=== PATIENT | male | born 1960 | race Caucasian/White ===

== ENCOUNTER 2016-11-26 10:10 | Observation (INO) | payer OTHER ==
[~2016-11-26] VITALS: Ht 177.8 cm; Wt 105.6 kg
[~2016-11-26 10:10] MED LIST: MULT-506 PO
[2016-11-26] MEDS ORDERED: ONDANSETRON INJ 2 MG/ML 2 ML VIAL IV STA (10:22)
[2016-11-26] MEDS ORDERED: KETOROLAC TROMETHAMINE 30 MG/ML VIAL IV STA (10:22)
[2016-11-26] MEDS ORDERED: SODIUM CHLORIDE 0.9% 1000ML 1,000 ML IV STA (10:22)
[2016-11-26] MEDS ORDERED: OPTIRAY 320 IV PRN (10:30)
[2016-11-26 10:35] LABS: BASO % 0.1 %; BASO ABS # 0.01 K/uL (0-0.2); COMPLETE YES; EOS % 0.6 %; HEMATOCRIT 45.6 % (42-52); IG% 0.1 %; LYMPH ABS # 1.19 K/uL (1.2-3.4); MEAN CELL VOLUME 92.3 fL (80-100); MEAN CORPUSCULAR HEMOGLOBIN 32.6 pg (25-34); MEAN CORPUSCULAR HGB CONC 35.3 g/dl (32-36); MEAN PLATELET VOLUME 9.3 fL (7.4-10.4); NEUT % 80.2 %; PLATELET COUNT 171 K/uL (130-400); RED BLOOD COUNT 4.94 M/uL (4.7-6.1); WHITE BLOOD COUNT 7.93 K/uL (4.8-10.8)
[2016-11-26 10:48] LABS: PARTIAL THROMBOPLASTIN RATIO 1.1; PROTHROMBIN TIME (PATIENT) 10.4 SECONDS (9.0-12.0)
[2016-11-26 10:51] LABS: BUN/CREATININE RATIO 12.2 (10-20); CALCIUM 9.3 mg/dl (8.5-10.1); CREATININE 0.99 mg/dl (0.60-1.40); POTASSIUM 4.2 mmol/L (3.5-5.1)
[2016-11-26 12:32] LABS: URINE APPEARANCE CLEAR (CLEAR); URINE BILIRUBIN NEG (NEG); URINE EPITHELIAL CELL AUTO 0-5 /lpf (0-5); URINE NITRITE NEG (NEG); URINE PH 8.5 (4.5-7.5); URINE SPECIFIC GRAVITY 1.018 (1.000-1.030); UROBILINOGEN NEG (NEG); ZZUR CULT IF INDIC CLEAN CATCH NO
[2016-11-26 12:40] LABS: MANUAL MICROSCOPIC REQUIRED? NO; REVIEW REQ? NO; URINE COLOR N
[2016-11-26] MEDS ORDERED: ONDANSETRON INJ 2 MG/ML 2 ML VIAL ONE ×2 (13:13→14:34)
--- NOTE | 2016-11-26 13:47 | DIAGNOSTIC IMAGING REPORT ---
ABDOMEN AND PELVIS CT WITH IV AND ORAL CONTRAST CT DOSE: 1029.78 mGycm HISTORY: Lower abdominal pain. TECHNIQUE: Multiaxial CT images of the abdomen and pelvis were performed following the use of intravenous and oral contrast. A dose lowering technique was utilized adhering to the principles of ALARA. COMPARISON STUDY: None. FINDINGS: The appendix is thickened and fluid-filled. There is associated periappendiceal fat stranding. This is consistent with acute appendicitis. No perforation or abscess. Mild thickening at the cecal base and the adjacent distal ileum is likely reactive. The appendix measures 1 cm in diameter. Small bilateral fat-containing inguinal hernias. Right lower lobe calcified granuloma. Cholelithiasis. The liver, adrenal glands, and pancreas are unremarkable. No retroperitoneal lymphadenopathy. Mild bilateral perinephric edema. A 7 mm hypodense lesion within the left kidney which is too small to characterize. The right kidney enhances normally. No hydronephrosis. Evidence for mesh repair of an umbilical hernia. Normal bladder. No evidence for bowel obstruction. IMPRESSION: Acute appendicitis. Electronically signed by: Edin Croft M.D. 11/26/2016 1:46 PM Dictated Date/Time: 11/26/2016 1:41 PM
[2016-11-26] MEDS ORDERED: CEFOXITIN SOD 2 GM VIAL IV ONE (14:30)
--- NOTE | 2016-11-26 14:31 | History and Physical ---
History & Physical Date & Time of Service: Nov 26, 2016 at 14:28 Chief Complaint: Severe Abd Pain, Some Nausea Primary Care Physician: Richi Cheung M.D. History of Present Illness Source: patient 56 yr old man seen at the request of Dr. Donald Ybarra for acute abdominal pain that started around 3 am. Crampy, diffuse throughout his abdomen, no radiation, 10/10 in intensity, unable to get comfortable. Not worse with movement. Associated with nausea, anorexia, chills. No fever or vomiting. As pain persisted, came to ER for evaluation. Starting to localize to the right lower quadrant. Past Medical/Surgical History Medical Problems: (1) No chronic problems Status: Chronic Surgical Problems: (1) Umbilical hernia repair by Dr. Chong Status: Resolved Family History No pertinent family history Social History Smoking Status: Never Smoker Marital Status: Housing status: lives with family Multi-Drug Resistant Organisms History of MDRO: No Allergies Coded Allergies: Codeine (Verified Adverse Reaction, Intermediate, HALLUCINATIONS, MENTAL CHANGES, 11/26/16) Home Medications Scheduled Multivitamin (Multivitamin), 1 TAB PO DAILY Review of Systems Constitutional: + chills Eyes: No problem reported ENT: No problem reported Respiratory: No problem reported Cardiovascular: No problem reported Abdomen: + pain, + nausea Musculoskeletal: No problem reported Genitourinary - Male: No problem reported Neurologic: No problem reported Endocrine: No problem reported Hematologic / Lymphatic: No problem reported Integumentary: No problem reported Physical Exam Vital Signs Date Time Temp Pulse Resp B/P (MAP) Pulse Ox O2 Delivery O2 Flow Rate FiO2 11/26/16 12:10 53 18 128/91 97 Room Air 11/26/16 10:11 36.4 51 18 144/86 96 Room Air General Appearance: WD/WN, no apparent distress Head: normocephalic, atraumatic Eyes: normal inspection ENT: normal ENT inspection, hearing grossly normal Neck: supple, trachea midline Respiratory/Chest: lungs clear, normal breath sounds, no respiratory distress Cardiovascular: regular rate, rhythm, no JVD, no murmur Abdomen/GI: normal bowel sounds, soft, no organomegaly, + tenderness (right lateral lower quadrant, no guarding), + pertinent finding (well healed umbilical incision) Back: normal inspection, normal range of motion Extremities/Musculoskelatal: normal inspection, no pedal edema Neurologic/Psych: alert, normal mood/affect, oriented x 3 Skin: normal color, warm/dry Diagnostics Laboratory Results Results Past 24 Hours Test 11/26/16 10:20 11/26/16 12:10 Range/Units White Blood Count 7.93 4.8-10.8 K/uL Red Blood Count 4.94 4.7-6.1 M/uL Hemoglobin 16.1 14.0-18.0 g/dL Hematocrit 45.6 42-52 % Mean Corpuscular Volume 92.3 80-100 fL Mean Corpuscular Hemoglobin 32.6 25-34 pg Mean Corpuscular Hemoglobin Concent 35.3 32-36 g/dl Platelet Count 171 130-400 K/uL Mean Platelet Volume 9.3 7.4-10.4 fL Neutrophils (%) (Auto) 80.2 % Lymphocytes (%) (Auto) 15.0 % Monocytes (%) (Auto) 4.0 % Eosinophils (%) (Auto) 0.6 % Basophils (%) (Auto) 0.1 % Neutrophils # (Auto) 6.35 1.4-6.5 K/uL Lymphocytes # (Auto) 1.19 1.2-3.4 K/uL Monocytes # (Auto) 0.32 0.11-0.59 K/uL Eosinophils # (Auto) 0.05 0-0.5 K/uL Basophils # (Auto) 0.01 0-0.2 K/uL RDW Standard Deviation 42.3 36.4-46.3 fL RDW Coefficient of Variation 12.7 11.5-14.5 % Immature Granulocyte % (Auto) 0.1 % Immature Granulocyte # (Auto) 0.01 0.00-0.02 K/uL Prothrombin Time 10.4 9.0-12.0 SECONDS Prothromb Time International Ratio 1.0 0.9-1.1 Activated Partial Thromboplast Time 28.5 21.0-31.0 SECONDS Partial Thromboplastin Ratio 1.1 Sodium Level 140 136-145 mmol/L Potassium Level 4.2 3.5-5.1 mmol/L Chloride Level 105 98-107 mmol/L Carbon Dioxide Level 30 21-32 mmol/L Anion Gap 5.0 3-11 mmol/L Blood Urea Nitrogen 12 7-18 mg/dl Creatinine 0.99 0.60-1.40 mg/dl Est Creatinine Clear Calc Drug Dose 99.0 ml/min Estimated GFR () 96.9 Estimated GFR (Non- 83.6 BUN/Creatinine Ratio 12.2 10-20 Random Glucose 100 70-99 mg/dl Calcium Level 9.3 8.5-10.1 mg/dl Total Bilirubin 0.9 0.2-1 mg/dl Direct Bilirubin 0.1 0-0.2 mg/dl Aspartate Amino Transf (AST/SGOT) 21 15-37 U/L Alanine Aminotransferase (ALT/SGPT) 38 12-78 U/L Alkaline Phosphatase 76 45-117 U/L Total Protein 8.0 6.4-8.2 gm/dl Albumin 4.1 3.4-5.0 gm/dl Lipase 175 73-393 U/L Urine Color N Urine Appearance CLEAR CLEAR Urine pH 8.5 4.5-7.5 Urine Specific [place] 1.018 1.000-1.030 Urine Protein NEG NEG Urine Glucose (UA) NEG NEG Urine Ketones TRACE NEG Urine Occult Blood NEG NEG Urine Nitrite NEG NEG Urine Bilirubin NEG NEG Urine Urobilinogen NEG NEG Urine Leukocyte Esterase NEG NEG Urine WBC (Auto) 0 0-5 /hpf Urine RBC (Auto) 0-4 0-4 /hpf Urine Hyaline Casts (Auto) 0 0-5 /lpf Urine Epithelial Cells (Auto) 0-5 0-5 /lpf Urine Bacteria (Auto) NEG NEG Diagnostic Radiology CT scan with acute appendicitis Impression Assessment and Plan 56 yr old man with acute appendicitis. Consented for laparoscopic appendectomy - risks of bleeding, infection, conversion to open, postop abscess all discussed.
[2016-11-26] MEDS ORDERED: NEOSTIGMINE METHYLSULFATE 5 MG/5 ML SYR ONE (14:34)
[2016-11-26] MEDS ORDERED: PROPOFOL IV EMULSION 10 MG/ML 20 ML VIAL IV ONE (14:34)
[2016-11-26] MEDS ORDERED: MIDAZOLAM HCL 1 MG/ML 2ML VIAL ONE (14:34)
[2016-11-26] MEDS ORDERED: GLYCOPYRROLATE INJ 0.2 MG/ML VIAL ONE (14:34)
[2016-11-26] MEDS ORDERED: LIDOCAINE HCL 2% 2 ML VIAL (20MG/ML) ONE (14:34)
[2016-11-26] MEDS ORDERED: SUCCINYLCHOLINE CHLORIDE 20 MG/ML 10 ML VIAL IV ONE (14:34)
[2016-11-26] MEDS ORDERED: ROCURONIUM BROMIDE 10 MG/ML 5 ML VIAL ONE (14:34)
[2016-11-26] MEDS ORDERED: DEXAMETHASONE SOD INJ 4 MG/ML VIAL ONE (14:34)
[2016-11-26] MEDS ORDERED: FENTANYL CITRATE INJ 50 MCG/1 ML 2 ML VIAL ONE ×2 (14:36→16:45)
--- NOTE | 2016-11-26 14:43 | EMERGENCY ROOM VISIT NOTE ---
History Report prepared by Ac: Solo Gerard Under the Supervision of: Dr. Donald Chou D.O. First contact with patient: 10:17 Chief Complaint: ABDOMINAL PAIN Stated Complaint: SEVERE ABD PAIN, SOME NAUSEA Nursing Triage Summary: triage note: Pt reports generalized abd pain. pt reports pain started at 0300 today. History of Present Illness The patient is a 56 year old male who presents to the Emergency Room with complaints of waxing and waning abdominal pain that started upon waking around 7 hours ago. He says that he has never had this kind of abdominal pain before. The patient states that the pain comes and goes, but is always there. He says the pain has been moving around his abdomen, but the pain never goes below his belly button. The patient adds that the pain worsened during the past few hours , to the point that he was very uncomfortable. He says that he did feel a bit weak, dizzy, nauseated, and short of breath earlier, but he thinks this was probably due to the pain. Currently, he states that the pain is moderate. The patient states that he had 2 bowel movements this morning. He denies any chest pain or diarrhea. He has a history of umbilical hernia surgery. He denies any medical problems, and he does not take any daily medications. Source of History: patient Onset: 7 hours ago Position: abdomen Symptom Intensity: made him very uncomfortable Timing: waxes/wanes Associated Symptoms: + SOB, + nausea, + weakness, No chest pain, No diarrhea Note: Associated symptoms: Dizzy. Review of Systems See HPI for pertinent positives & negatives. A total of 10 systems reviewed and were otherwise negative. Past Medical & Surgical Medical Problems: (1) No chronic problems Surgical Problems: (1) Umbilical hernia Family History No pertinent family history Social History Smoking Status: Never Smoker Alcohol Use: none Marital Status: Housing Status: lives with family Current/Historical Medications Scheduled Multivitamin (Multivitamin), 1 TAB PO DAILY Allergies Coded Allergies: Codeine (Verified Adverse Reaction, Intermediate, HALLUCINATIONS, MENTAL CHANGES, 11/26/16) Physical Exam Vital Signs Date Time Temp Pulse Resp B/P (MAP) Pulse Ox O2 Delivery O2 Flow Rate FiO2 11/26/16 14:15 74 18 146/84 97 Room Air 11/26/16 12:10 53 18 128/91 97 Room Air 11/26/16 10:11 36.4 51 18 144/86 96 Room Air Physical Exam CONSTITUTIONAL/VITAL SIGNS: Reviewed / noted above. GENERAL: Non-toxic in appearance. INTEGUMENTARY: Warm, dry, and [place]. HEAD: Normocephalic. EYES: without scleral icterus or trauma. ENT/OROPHARYNX: clear and moist. LYMPHADENOPATHY/NECK: Is supple without lymphadenopathy or meningismus. RESPIRATORY: Lungs clear and equal. CARDIOVASCULAR: Regular rate and rhythm. GI/ABDOMEN: Soft. Tenderness to palpation in right mid and lower abdomen. No organomegaly or pulsatile mass. No rebound or guarding. Normal bowel sounds. EXTREMITIES: Warm and well perfused. BACK: No CVA tenderness. NEUROLOGICAL: Intact without focal deficits. PSYCHIATRIC: normal affect. MUSCULOSKELETAL: Normally developed with good muscle tone. Medical Decision & Procedures ER Provider Diagnostic Interpretation: CT results as stated below per my review and radiologist interpretation: ABDOMEN AND PELVIS CT WITH IV AND ORAL CONTRAST CT DOSE: 1029.78 mGycm HISTORY: Lower abdominal pain. TECHNIQUE: Multiaxial CT images of the abdomen and pelvis were performed following the use of intravenous and oral contrast. A dose lowering technique was utilized adhering to the principles of ALARA. COMPARISON STUDY: None. FINDINGS: The appendix is thickened and fluid-filled. There is associated periappendiceal fat stranding. This is consistent with acute appendicitis. No perforation or abscess. Mild thickening at the cecal base and the adjacent distal ileum is likely reactive. The appendix measures 1 cm in diameter. Small bilateral fat-containing inguinal hernias. Right lower lobe calcified granuloma. Cholelithiasis. The liver, adrenal glands, and pancreas are unremarkable. No retroperitoneal lymphadenopathy. Mild bilateral perinephric edema. A 7 mm hypodense lesion within the left kidney which is too small to characterize. The right kidney enhances normally. No hydronephrosis. Evidence for mesh repair of an umbilical hernia. Normal bladder. No evidence for bowel obstruction. IMPRESSION: Acute appendicitis. Electronically signed by: Edin Croft M.D. 11/26/2016 1:46 PM Dictated Date/Time: 11/26/2016 1:41 PM Laboratory Results 11/26/16 10:20 Red Blood Count 4.94, Mean Corpuscular Volume 92.3, Mean Corpuscular Hemoglobin 32.6, Mean Corpuscular Hemoglobin Concent 35.3, Mean Platelet Volume 9.3, Neutrophils (%) (Auto) 80.2, Lymphocytes (%) (Auto) 15.0, Monocytes (%) (Auto) 4.0, Eosinophils (%) (Auto) 0.6, Basophils (%) (Auto) 0.1, Neutrophils # (Auto) 6.35, Lymphocytes # (Auto) 1.19, Monocytes # (Auto) 0.32, Eosinophils # (Auto) 0.05, Basophils # (Auto) 0.01 11/26/16 10:20 Test 11/26/16 10:20 11/26/16 12:10 White Blood Count 7.93 K/uL (4.8-10.8) Red Blood Count 4.94 M/uL (4.7-6.1) Hemoglobin 16.1 g/dL (14.0-18.0) Hematocrit 45.6 % (42-52) Mean Corpuscular Volume 92.3 fL (80-100) Mean Corpuscular Hemoglobin 32.6 pg (25-34) Mean Corpuscular Hemoglobin Concent 35.3 g/dl (32-36) Platelet Count 171 K/uL (130-400) Mean Platelet Volume 9.3 fL (7.4-10.4) Neutrophils (%) (Auto) 80.2 % Lymphocytes (%) (Auto) 15.0 % Monocytes (%) (Auto) 4.0 % Eosinophils (%) (Auto) 0.6 % Basophils (%) (Auto) 0.1 % Neutrophils # (Auto) 6.35 K/uL (1.4-6.5) Lymphocytes # (Auto) 1.19 K/uL (1.2-3.4) Monocytes # (Auto) 0.32 K/uL (0.11-0.59) Eosinophils # (Auto) 0.05 K/uL (0-0.5) Basophils # (Auto) 0.01 K/uL (0-0.2) RDW Standard Deviation 42.3 fL (36.4-46.3) RDW Coefficient of Variation 12.7 % (11.5-14.5) Immature Granulocyte % (Auto) 0.1 % Immature Granulocyte # (Auto) 0.01 K/uL (0.00-0.02) Prothrombin Time 10.4 SECONDS (9.0-12.0) Prothromb Time International Ratio 1.0 (0.9-1.1) Activated Partial Thromboplast Time 28.5 SECONDS (21.0-31.0) Partial Thromboplastin Ratio 1.1 Anion Gap 5.0 mmol/L (3-11) Est Creatinine Clear Calc Drug Dose 99.0 ml/min Estimated GFR () 96.9 Estimated GFR (Non- 83.6 BUN/Creatinine Ratio 12.2 (10-20) Calcium Level 9.3 mg/dl (8.5-10.1) Total Bilirubin 0.9 mg/dl (0.2-1) Direct Bilirubin 0.1 mg/dl (0-0.2) Aspartate Amino Transf (AST/SGOT) 21 U/L (15-37) Alanine Aminotransferase (ALT/SGPT) 38 U/L (12-78) Alkaline Phosphatase 76 U/L (45-117) Total Protein 8.0 gm/dl (6.4-8.2) Albumin 4.1 gm/dl (3.4-5.0) Lipase 175 U/L (73-393) Urine Color N Urine Appearance CLEAR (CLEAR) Urine pH 8.5 (4.5-7.5) Urine Specific [place] 1.018 (1.000-1.030) Urine Protein NEG (NEG) Urine Glucose (UA) NEG (NEG) Urine Ketones TRACE (NEG) Urine Occult Blood NEG (NEG) Urine Nitrite NEG (NEG) Urine Bilirubin NEG (NEG) Urine Urobilinogen NEG (NEG) Urine Leukocyte Esterase NEG (NEG) Urine WBC (Auto) 0 /hpf (0-5) Urine RBC (Auto) 0-4 /hpf (0-4) Urine Hyaline Casts (Auto) 0 /lpf (0-5) Urine Epithelial Cells (Auto) 0-5 /lpf (0-5) Urine Bacteria (Auto) NEG (NEG) Laboratory results as stated above per my review. Medications Administered Medications (Trade) Dose Ordered Sig/Pamela Route Start Time Stop Time Status Last Admin Dose Admin Sodium Chloride 1,000 ml @ 999 mls/hr Q1H1M STAT IV 11/26/16 10:22 11/26/16 11:22 DC 11/26/16 10:37 999 MLS/HR Ondansetron HCl (Zofran Inj) 4 mg NOW STAT IV 11/26/16 10:22 11/26/16 10:24 DC 11/26/16 10:37 4 MG Ondansetron HCl (Zofran Inj) 4 mg STK-MED ONCE .ROUTE 11/26/16 13:13 11/26/16 13:14 DC 11/26/16 13:15 4 MG ED Course 1018: Previous medical records were reviewed. The patient was evaluated in room A10. A complete history and physical examination was performed. 1022: Ordered Toradol Inj 30 mg IV, Zofran Inj 4 mg IV, NSS 1000 ml @ 999 mls/ hr IV. 1411: I reevaluated and updated the patient. He is resting. The patient verbally expressed understanding and agreement with the treatment plan. The patient will be evaluated for further treatment. 1415: I discussed the patient with Dr. Yonatan Valencia General Surgery - she will evaluate the patient for further treatment. Medical Decision Differential diagnosis: Etiologies such as appendicitis, diverticulitis, PUD, biliary pathology, UTI, pancreatitis, obstruction, mesenteric ischemia, aortic pathology, infections, inflammatory bowel disease, renal colic, as well as others were entertained. Medication Reconciliation: I attest that I have personally reviewed the patient' s current medication list. Patient was found to have a slightly elevated blood pressure due to circumstances. I do not believe that the patient requires hypertension monitoring. This is a 56-year-old male who presents to the ED with a chief complaint of abdominal pain. The patient states that around 3 AM today he developed abdominal pain. The pain was always in the suprapubic area but would come and go, wax and wane and move around. He reported 2 bowel movements this morning. No diarrhea or vomiting. He has had some associated nausea. His vital signs are stable. His physical exam revealed some abdominal tenderness in the right mid and lower abdomen. His pain is currently mild to moderate and he states he does not want pain medication at this time. Physical exam was otherwise unremarkable. CBC is normal, complete metabolic panel is normal, lipase is normal. CT scan of the abdomen and pelvis reveals acute appendicitis. I spoke with Dr. Tam who will see the patient. The patient was treated with IV fluids and IV Zofran. Consults Time Called: 1410 Consulting Physician: Dr. Yonatan Valencia General Surgery Returned Call: 1414 I discussed the patient with Dr. Yonatan Valencia General Surgery - she will evaluate the patient for further treatment. Impression Primary Impression: Acute appendicitis Scribe Attestation The scribe's documentation has been prepared under my direction and personally reviewed by me in its entirety. I confirm that the note above accurately reflects all work, treatment, procedures, and medical decision making performed by me. Departure Information Dispostion Being Evaluated By Hospitalist Richi Kendrick M.D. (PCP) Patient Instructions My [facility] Health Problem Qualifiers Primary Impression: Acute appendicitis Acute appendicitis type: unspecified acute appendicitis type Qualified Codes : K35.80 - Unspecified acute appendicitis
[2016-11-26] MEDS ORDERED: PROMETHAZINE HCL INJ 12.5 MG in SODIUM CHLORIDE 0.9% 50ML 50 ML IV PRN (14:45)
[2016-11-26] MEDS ORDERED: EpHEDrine SULFATE INJ 50 MG/ML AMP IV PRN (14:45)
[2016-11-26] MEDS ORDERED: HYDROmorphone INJ 1 MG/ML SYR IV PRN (14:45)
[2016-11-26] MEDS ORDERED: ONDANSETRON INJ 2 MG/ML 2 ML VIAL IV PRN ×2 (14:45→17:45)
[2016-11-26] MEDS ORDERED: FENTANYL CITRATE INJ 50 MCG/1 ML 2 ML VIAL IV PRN (14:45)
[2016-11-26] MEDS ORDERED: ATROPINE SULFATE 0.1 MG/ML 5ML SYR IV PRN (14:45)
[2016-11-26] MEDS ORDERED: CEFOXITIN IV 2,000 MG in DEXTROSE 5% 50ML 50 ML IV ONE (14:45)
[2016-11-26] MEDS ORDERED: BUPIVACAINE 0.5 % 5 MG/1 ML MPF 30ML VIAL ONE (14:51)
--- NOTE | 2016-11-26 17:33 | [facility] Post Operative Brief Note ---
Immediate Operative Summary Operative Date Nov 26, 2016. Pre-Operative Diagnosis Acute Appendicitis Post-Operative Diagnosis Acute retrocecal Appendicitis Procedure(s) Performed Laparoscopic Appendectomy Surgeon Dr. Sandra Tam Cnc Lathe Machine Operator Surgeon(s) none Estimated Blood Loss 10 cc Findings very difficult to find the appendix, coursing retrocecally and encased in inflammatory change of the mesentery. Came out in two pieces. Fluids (cc crystalloids) 1400 cc Specimens A: Appendix Drains none Anesthesia GET Complication(s) None Disposition Recovery Room / PACU
--- NOTE | 2016-11-26 17:34 | Anesthesiology Progress Note ---
Anesthesia Post Op Note Date & Time Nov 26, 2016 at 17:34 Vital Signs Pain Intensity: 0 Vital Signs Past 12 Hours Date Time Temp Pulse Resp B/P (MAP) Pulse Ox O2 Delivery O2 Flow Rate FiO2 11/26/16 17:25 52 14 115/81 99 Oxymask 3 11/26/16 17:15 55 12 111/83 99 Oxymask 10 11/26/16 17:08 36.3 61 12 131/81 100 Oxymask 10 11/26/16 14:43 11/26/16 14:15 74 18 146/84 97 Room Air 11/26/16 12:10 53 18 128/91 97 Room Air 11/26/16 10:11 36.4 51 18 144/86 96 Room Air Notes Mental Status: alert / awake / arousable, participated in evaluation Pt Amnestic to Procedure: Yes Nausea / Vomiting: adequately controlled Pain: adequately controlled Airway Patency, RR, SpO2: stable & adequate BP & HR: stable & adequate Hydration State: stable & adequate Anesthetic Complications: no major complications apparent
[2016-11-26] MEDS ORDERED: ACETAMINOPHEN 325 MG TAB PO PRN (17:45)
[2016-11-26] MEDS ORDERED: OXYCODONE/ACETAMINOPHEN 5-325 TAB PO PRN ×2 (17:45)
[2016-11-26] MEDS ORDERED: MoRPHine SULFATE 4 MG/ML 1 ML CARP\\VIAL IV PRN (17:45)
[2016-11-26] MEDS ORDERED: MoRPHine SULFATE 2 MG/ML CARP IV PRN ×2 (17:45)
[2016-11-26 18:00] VITALS: BP 137/85; PULSE 58; TEMP 36.3; O2SAT 98
[2016-11-26 18:30] VITALS: BP 137/85; PULSE 54; TEMP 36.5; O2SAT 98
[2016-11-26] MEDS: LACTATED RINGER'S 1000ML 1,000 ML IV SCH (18:33)
[2016-11-26 18:53] VITALS: Ht 177.8 cm; Wt 105.6 kg
[2016-11-26 19:07] VITALS: BP 131/81; PULSE 50; TEMP 36.4; O2SAT 98
[2016-11-26] MEDS ORDERED: IV FLUIDS COMPLETED PRN (19:30)
[2016-11-26 20:06] VITALS: BP 129/78; PULSE 61; TEMP 36.6; O2SAT 96
[2016-11-26] MEDS: CEFOXITIN IV 2,000 MG in DEXTROSE 5% 50ML 50 ML IV SCH (20:39)
[2016-11-26 21:00] VITALS: BP 114/72; PULSE 61; TEMP 36.7; O2SAT 92
--- NOTE | 2016-11-26 22:45 | OPERATIVE REPORT ---
DATE OF OPERATION: 11/26/2016 PREOPERATIVE DIAGNOSIS: Acute appendicitis. POSTOPERATIVE DIAGNOSIS: Acute retrocecal appendicitis. OPERATIVE PROCEDURE: Laparoscopic appendectomy. SURGEON: Dr. Sandra Tam. PUMP SERVICER: None. ANESTHESIA: General endotracheal anesthesia. ESTIMATED BLOOD LOSS: 10 mL IV FLUIDS: 1400 mL SPECIMENS: Appendix. DRAINS: None. COMPLICATIONS: None. OPERATIVE FINDINGS: It was very difficult to find the appendix. This was coursing retrocecal and encased in dense inflammatory mass. INDICATIONS: Mr. Abbasi is a 56-year-old gentleman, who presented with acute appendicitis. He was consented regarding laparoscopic appendectomy. He had a prior laparoscopic umbilical hernia repair by Dr. Chong. PROCEDURE: The patient received cefoxitin preoperatively. After the induction of general endotracheal anesthesia, he had placement of sequential compression devices. His abdomen was clipped and then sterilely prepped and draped. An incision was made up in the right upper quadrant due to the patient's prior laparoscopic umbilical hernia repair with mesh. This was carried down to fascia and a Veress needle placed through the fascia. The initial pressure was 1 mmHg. This was tested with the saline drop test prior to initiation of pneumoperitoneum. Pneumoperitoneum was established to 15 mmHg and a 5-mm trocar was placed. This was later converted to a 12-mm trocar. Two additional trocars were placed under direct vision, a 12 in the left lower quadrant and a 5 mm in the midline pubic area. There were significant adhesions of omentum noted to the umbilical area. We were able to just work around to these. Initial inspection revealed, what appeared to be, dense inflammatory change extending on to the right lateral side wall. The terminal ileum could be followed to the cecum; however, the appendix was not easily visualized. Some of the dense inflammatory change was cleared. This was a very difficult dissection. Ultimately, I was able to identify the base of the appendix on the cecum. This area was cleared with a firing of the SUSY stapler. The appendix and mesentery was then sequentially followed. This was very thick and inflamed. In the course of doing so, I could see the appendix coursing retrocecally; however, I was unable to identify the tip yet. The appendiceal mesentery was taken with sequential firings of the ramon load of the stapler and retracting the appendix superiorly, the proximal portion tore and was placed in an Endobag and removed. The distal portion was then re-grabbed; this portion was much more inflamed. Again, sequentially taking mesentery, I was able to follow this out to a very inflamed tip of the appendix, which was soft, on the cecum and lateral side wall. This was ultimately cleared of all of its attachments and removed. This was placed in an Endobag and removed through the umbilical incision. The wound was noted to be hemostatic. The abdomen was irrigated and suctioned clear. The trocars were removed. 30 mL of 0.5% Marcaine had been used for local anesthesia throughout the procedure. The fascia of both incisions was closed with 0 Vicryl stitches placed anteriorly. The skin of all 3 incisions was closed with running subcuticular 4-0 Vicryl sutures. Steri-Strips and sterile dressings were applied. He was awakened and taken to recovery in stable condition. I attest to the content of the Intraoperative Record and any orders documented therein. Any exception s are noted below.
[2016-11-26 22:54] VITALS: BP 118/71; PULSE 60; TEMP 36.8; O2SAT 95
[2016-11-27] MEDS: CEFOXITIN IV 2,000 MG in DEXTROSE 5% 50ML 50 ML IV SCH ×3 (01:55→14:00)
[2016-11-27 03:22] VITALS: BP 102/60; PULSE 53; TEMP 36.6; O2SAT 94
[2016-11-27] MEDS: LACTATED RINGER'S 1000ML 1,000 ML IV SCH (04:14)
[2016-11-27 06:59] VITALS: BP 102/65; PULSE 47; TEMP 36.4; O2SAT 92
[2016-11-27 07:40] VITALS: PULSE 58
[2016-11-27] MEDS ORDERED: MULTIVITAMIN TAB PO SCH (09:00)
--- NOTE | 2016-11-27 10:28 | Anesthesiology Progress Note ---
Anesthesia Post Op Note Date & Time Nov 27, 2016 at 10:27 Vital Signs Pain Intensity: 5.0 Vital Signs Past 12 Hours Date Time Temp Pulse Resp B/P (MAP) Pulse Ox O2 Delivery O2 Flow Rate FiO2 11/27/16 07:40 Room Air 11/27/16 06:59 36.4 47 16 102/65 (77) 92 Room Air 11/27/16 03:22 36.6 53 16 102/60 (74) 94 Room Air 11/26/16 23:16 Room Air 11/26/16 22:54 36.8 60 18 118/71 (87) 95 Room Air Notes Mental Status: alert / awake / arousable, participated in evaluation Pt Amnestic to Procedure: Yes Nausea / Vomiting: adequately controlled Pain: adequately controlled Airway Patency, RR, SpO2: stable & adequate BP & HR: stable & adequate Hydration State: stable & adequate Anesthetic Complications: no major complications apparent
[2016-11-27] MEDS ORDERED: OXYC-57 PO (12:56)
--- NOTE | 2016-11-27 13:00 | Discharge Instructions ---
Discharge Instructions Date of Service Nov 27, 2016. Admission Reason for Admission: Acute Appendicitis Discharge Discharge Diagnosis / Problem: Acute Appendicitis Discharge Goals Goal(s): Decrease discomfort Activity Recommendations Activity Limitations: as noted below No heavy lifting over 20 pounds or strenuous activity for 2 weeks. Walking and light activity is encouraged No submerging incisions underwater for 2 weeks (no bathing, hot tubs, or swimming) No driving while taking Narcotic pain medication . Instructions / Follow-Up Instructions / Follow-Up You may shower when you get home Take dressings off after/during showering and leave steri strips on the incisions Steri strips may fall off on their on that is okay, if they are on longer than 10 days from your surgery you may remove them Follow-up in surgical office with Sushila Elaine PA-C in 2 weeks, please call office at [phone] to make an appointment Current Hospital Diet Patient's current hospital diet: Regular Diet Discharge Diet Recommended Diet: Regular Diet Procedures Procedures Performed: Laparoscopic Appendectomy Pending Studies Studies pending at discharge: no Medical Emergencies . Who to Call and When: Medical Emergencies: If at any time you feel your situation is an emergency, please call 911 immediately. . Non-Emergent Contact Non-Emergency issues call your: Primary Care Provider, Surgeon Call Non-Emergent contact if: you have a fever, temperature is above 101.5, your pain is not controlled, your pain is worsening, wound has increased drainage, wound has increased redness, wound has increased pain . "Provider Documentation" section prepared by Sushila Elaine. . VTE Core Measure Inpt VTE Proph given/why not?: SCD's [place] Drug Monitoring Program Search Results: patient reviewed within database, no issues identified
[2016-11-27] MEDS ORDERED: AMOX875T PO (13:03)
--- NOTE | 2016-11-27 13:03 | Surgery Progress Note ---
Surgery Progress Note Date of Service Nov 27, 2016. Subjective Post OP Day: 1 + feeling well, + ambulating (to bathroom), + flatus, + pain controlled, + diet (tolerated full liquids), No complaints, No chest pain, No SOB, No bowel movement, No nausea, No vomiting Objective Vital Signs: Date Time Temp Pulse Resp B/P (MAP) Pulse Ox O2 Delivery O2 Flow Rate FiO2 11/27/16 07:40 Room Air 11/27/16 07:40 58 11/27/16 06:59 36.4 47 16 102/65 (77) 92 Room Air 11/27/16 03:22 36.6 53 16 102/60 (74) 94 Room Air 11/26/16 23:16 Room Air 11/26/16 22:54 36.8 60 18 118/71 (87) 95 Room Air 11/26/16 21:00 36.7 61 16 114/72 (86) 92 Room Air 11/26/16 20:06 36.6 61 16 129/78 (95) 96 Nasal Cannula 2.0 11/26/16 20:00 Room Air 11/26/16 19:07 36.4 50 16 131/81 (98) 98 Room Air 11/26/16 18:53 Mask 2.0 11/26/16 18:30 36.5 54 18 137/85 (102) 98 Oxymask 2.0 11/26/16 18:00 36.3 58 14 137/85 (102) 98 Nasal Cannula 2.0 11/26/16 18:00 98 Nasal Cannula 2.0 11/26/16 17:45 36.6 50 14 130/83 99 Oxymask 3 11/26/16 17:35 52 14 118/83 99 Oxymask 3 11/26/16 17:25 52 14 115/81 99 Oxymask 3 11/26/16 17:15 55 12 111/83 99 Oxymask 10 11/26/16 17:08 36.3 61 12 131/81 100 Oxymask 10 11/26/16 14:43 11/26/16 14:15 74 18 146/84 97 Room Air General Appearance: WD/WN, no apparent distress Head: normocephalic, atraumatic Neck: trachea midline Respiratory/Chest: normal breath sounds, no respiratory distress, no accessory muscle use Cardiovascular: regular rate, rhythm, no murmur Abdomen: soft, + distended (mildly distended), + tenderness (appropriate post op) Incision(s): clean, dry (dressings clean and dry, did not inspect incisions on POD # 1) Assessment & Plan POD # 1 s/p laparoscopic appendectomy -vitals stable - pain controlled - tolerating full liquids - afebrile overnight - preoperative pain resolved Plan: D/C home today Will d/c home with PO abx- Augmentin for 7 day course follow-up surgical office [address] Tam has seen and examined patient, agrees with above Pt seen and examined with KAREEM Griffin. Agree with assessment and plan above. Doing well. Discharge home today.
[2016-11-27 13:42] VITALS: BP 102/65; PULSE 58; TEMP 36.4; O2SAT 92
--- NOTE | 2016-11-29 10:53 | Discharge Summary ---
Discharge Summary Dates Admission Date / Time: Nov 26, 2016 at 17:35 Discharge Date: Nov 27, 2016 Dispostion / Condition Discharge Disposition: Home Condition at Discharge: Good Principal Diagnosis (1) Acute appendicitis Problem List (1) No chronic problems Consultations / Procedures Consultations: None Procedures: Laparoscopic appendectomy Pending Studies / Follow-Up Appendectomy Pathology- will be discussed at follow-up appointment Medication Reconciliation New Medications: Amoxicillin & Pot Clavulanate (Augmentin 875-125 mg) 1 Tab Tab 1 TAB PO BID for 7 Days, #14 TAB Oxycodone/Acetaminophen 5MG/325MG (Percocet 5MG/325MG) Tab 1 TABLET PO Q4H PRN for Pain, #18 TAB PAIN Continued Medications: Multivitamin (Multivitamin) Tab 1 TAB PO DAILY, TAB Admission HPI Per the Admitting provider: 56 yr old man seen at the request of Dr. Donald Ybarra for acute abdominal pain that started around 3 am. Crampy, diffuse throughout his abdomen, no radiation, 10/10 in intensity, unable to get comfortable. Not worse with movement. Associated with nausea, anorexia, chills. No fever or vomiting. As pain persisted, came to ER for evaluation. Starting to localize to the right lower quadrant. Admission Exam Per the Admitting provider: General Appearance: WD/WN, no apparent distress Head: normocephalic, atraumatic Eyes: normal inspection ENT: normal ENT inspection, hearing grossly normal Neck: supple, trachea midline Respiratory/Chest: lungs clear, normal breath sounds, no respiratory distress Cardiovascular: regular rate, rhythm, no JVD, no murmur Abdomen/GI: normal bowel sounds, soft, no organomegaly, + tenderness (right lateral lower quadrant, no guarding), + pertinent finding (well healed umbilical incision) Back: normal inspection, normal range of motion Extremities/Musculoskelatal: normal inspection, no pedal edema Neurologic/Psych: alert, normal mood/affect, oriented x 3 Skin: normal color, warm/dry Hospital Course (1) Acute appendicitis Patient was taken to operating room for laparoscopic appendectomy possible open. Procedure was prolonged and difficulty given amount of inflammation and retrocecal appendix. Tolerated procedure well and was transferred to recovery and then Med/Surg floor in stable condition. He was started on clear liquid diet, IV antibiotics, pain medication as needed, and IV Zofran. POD # 1 patient was feeling well, moderate abdominal pain but refused any pain medication and was feeling well. Tolerated diet and was advanced to full liquids in the morning. No issues overall and felt ready to go home. Overall hospital course was uneventful. Discharge Instructions as given to patient Copies To Primary Care Provider: Richi Cheung M.D..
== END 2016-11-27 14:30 | disposition home or self-care (01) ==
LOC: C.EDB 10:10 → C.MSN 17:35 → ENRESERV 17:42
PROVIDERS: ADMIT Surgery; ATTEND Surgery
DX: K35.80 Unspecified acute appendicitis (principal)

== ENCOUNTER → 2017-05-01 | Outpatient (CLI) | payer OTHER ==
[~2017-05-01] MED LIST changes: +OXYC-57 PO
[2017-05-01 13:17] LABS: HEMOGLOBIN A1C 5.4 % (4.5-5.6)
[2017-05-01 15:41] LABS: ALBUMIN 3.9 gm/dl (3.4-5.0); ALKALINE PHOSPHATASE 78 U/L (45-117); AST/SGOT 31 U/L (15-37); BLOOD UREA NITROGEN 16 mg/dl (7-18); CARBON DIOXIDE 30 mmol/L (21-32); CHOLESTEROL 263 mg/dl (0-200); CREATININE 0.99 mg/dl (0.60-1.40); GLUCOSE 89 mg/dl (70-99); POTASSIUM 4.4 mmol/L (3.5-5.1); SODIUM 139 mmol/L (136-145); TOTAL PROTEIN 8.1 gm/dl (6.4-8.2)
[2017-05-01 15:56] LABS: ALT/SGPT 79 U/L (12-78); LDL CHOLESTEROL (DIRECT) 164 mg/dl
== END | disposition home or self-care (01) ==
LOC: C.LABPVFM 09:54
PROVIDERS: ATTEND Family Medicine
DX: Z13.1 Encounter for screening for diabetes mellitus (principal); E78.5 Hyperlipidemia, unspecified

== ENCOUNTER 2021-01-06 13:45 | Inpatient (IN) ==
[2021-01-06] MEDS ORDERED: KETOROLAC TROMETHAMINE 15 MG/ML VIAL IV ONE (14:42)
[2021-01-06] MEDS ORDERED: SODIUM CHLORIDE 0.9% 1000ML 1,000 ML IV ONE (14:42)
[2021-01-06] MEDS ORDERED: SODIUM CHLORIDE 0.9% 1000ML 500 ML IV ONE (14:42)
--- NOTE | 2021-01-06 14:56 | Emergency Department Note ---
Impression & Plan Pneumonia due to 2019-nCoV, Hypoxia, Elevated troponin, Abnormal ECG ED Provider Note NAME: TALI CANTOR AGE: 60 SEX: M : 1960 ARRIVES VIA: Walk-In INFORMANT: Patient ED PROVIDER(S): Aleks Mancera DO CHIEF COMPLAINT: Not feeling well HPI: Patient is a 60-year-old male who presents the ER for cough and congestion. Symptoms started 7 days ago. He has lost his sense of taste and smell. He admits to chills and fevers. Has been having diarrhea as well as diffuse myalgias and arthralgias. This all occurred after he went to visit his sister who had a cough and upper respiratory symptoms. He is not vaccinated against Covid. He has been eating and drinking less. He denies any chest pain or shortness of breath. ROS: See above HPI for pertinent positives & negatives. A total of 10 systems reviewed and were otherwise negative. PAST MEDICAL HISTORY:See Below PAST SURGICAL HISTORY:See Below FAMILY HISTORY:See Below SOCIAL HISTORY:See Below HOME MEDICATIONS:See Below ALLERGIES:See Below VITALS:See Below PHYSICAL EXAMINATION: GENERAL: Sitting up in bed, alert, well appearing, well nourished, no distress, non-toxic EYE EXAM: normal conjunctiva. PERRL and EOM's intact. OROPHARYNX: no exudate, no erythema, lips, buccal mucosa, and tongue normal and mucous membranes are moist NECK: supple, no nuchal rigidity, no adenopathy, non-tender LUNGS: Clear to auscultation. Normal chest wall mechanics HEART: no murmurs, S1 normal and S2 normal ABDOMEN: abdomen soft, non-tender, normo-active bowel sounds, no masses, no rebound or guarding. UPPER EXTREMITIES: upper extremities are grossly normal. LOWER EXTREMITIES: No pitting edema. NEURO EXAM: Normal sensorium, cranial nerves II-XII grossly intact, normal speech, no gross weakness of arms, no gross weakness of legs. No drift. Finger to nose intact. Gross sensation intact. MEDICAL DECISION MAKING: Patient is a 60-year-old male who presents ER for not feeling well after visiting his sister who had a cough. IV was established blood work was obtained. He is unvaccinated. Labs show leukopenia 3000. No significant anemia. D-dimer is up at 3300. BMP was unremarkable. LFTs bilirubin was normal. Troponin was detectable at 0.057. Lipase was normal. Pro-Lane negative at 0.23. Patient was Covid positive. Chest x-ray unremarkable. CT angio shows no PEs but bilateral infiltrates. This consistent with Covid. He was updated bedside. EKG was fairly unremarkable. Discussed with the hospitalist. He has no chest pain. Do favor that this likely demand from the infection. Admitted for further work-up. Triage Nursing notes reviewed. Limited review of prior medical records performed Vital Signs: reviewed and remarkable for no significant abnormalities Differential diagnosis: Infection, dehydration, metabolic abnormality, hypo/hyperglycemia, electrolyte disturbance, anemia, hypoxia, cardiac sources, intracerebral event, toxicologic, neurologic, as well as other pathologies. ER treatment provided: See below Diagnostics interpreted by me: ECG: Sinus rhythm rate of 58 Left axis No PVCs QTC 4376 Cardiac Monitoring: An order was placed for continuous cardiac monitoring. The monitor shows a rate of 60 with sinus rhythm. Laboratory studies: As stated above and show below. Imaging studies: CT angios showed bilateral infiltrates but no PEs Chest x-ray was unremarkable Consultation(s): Discussed with hospitalist for further evaluation Dr. Dharmesh Tobin Procedures: none Critical Care: None Past Med/Surg History Medical History Hypertension Surgical History H/O hernia repair History of appendectomy Family History Sister Colorectal cancer Denies family history of Ovarian cancer Prostate cancer Diabetes Myocardial infarction Breast cancer Hypertension Social History Smoking Status: Never smoker Second Hand Exposure: No; Hx Alcohol Use: No Hx Substance Use: No Preferred Language: Luxembourgish marital status: Current Living Situation: Spouse current occupational status: employed current occupation: [employer] Feels Safe at Home: Yes caffeine: Yes (coffee) Dental Care, Regularly: No Physical Activity Frequency: 5-6 Times per Week Physical Activity Frequency Comment: walking Seatbelt Use: never Sunscreen Use: No Allergies Allergies Allergy/AdvReac Type Severity Reaction Status Date / Time codeine AdvReac Intermediate HALLUCINATIONS, Verified 01/06/21 16:28 MENTAL CHANGES Home Meds Home Medications Medication Instructions Recorded Confirmed multivitamin 1 tab PO PM 12/01/18 01/06/21 acetaminophen 500 mg tablet 1,000 mg PO Q6H PRN 11/11/20 01/06/21 (Tylenol Extra Strength) Results & Data (ED) Vital Signs Vital Signs - 24 hr 01/06/21 13:59 01/06/21 15:00 01/06/21 15:42 Temperature 37.7 C H Temperature Source Oral Pulse Rate 62 55 L 63 Pulse Rhythm Regular Pulse Strength Normal Respiratory Rate 18 17 19 Respiratory Effort / Characteristics Non-Labored Spontaneous Respiratory Depth Normal Respiratory Pattern Regular Blood Pressure 113/69 96/64 L 109/69 Blood Pressure Mean 83 74 82 Blood Pressure Position Sitting Pulse Oximetry 95 98 98 Oxygen Delivery Method Room Air Sepsis Recent Fever Within 48 Hours Yes Sepsis New/Unexplained Change in Mental Status No Sepsis Action Taken by Nursing No Action Required Laboratory Data Result diagrams: 01/06/21 15:00 01/06/21 15:00 Lab Results 01/06/21 01/06/21 01/06/21 Range/Units 15:00 15:00 15:00 WBC 3.65 L (4.8-10.8) K/uL RBC 4.55 L (4.7-6.1) M/uL Hgb 14.7 (14.0-18.0) g/dL Hct 43.6 (42-52) % MCV 95.8 (80-100) fL MCH 32.3 (25-34) pg MCHC 33.7 (32-36) g/dL RDW Std Deviation 44.1 (36.4-46.3) fL RDW Coeff of Andrew 12.7 (11.5-14.5) % Plt Count 138 (130-400) K/uL MPV 9.9 (7.4-10.4) fL Immature Gran % (Auto) 0.0 % Neut % (Auto) 68.2 % Lymph % (Auto) 24.4 % [place] % (Auto) 7.1 % Eos % (Auto) 0.0 % Baso % (Auto) 0.3 % Neut # (Auto) 2.49 (1.4-6.5) K/uL Lymph # (Auto) 0.89 L (1.2-3.4) K/uL [place] # (Auto) 0.26 (0.11-0.59) K/uL Eos # (Auto) 0.00 (0-0.5) K/uL Baso # (Auto) 0.01 (0-0.2) K/uL Immature Gran # (Auto) 0.00 (0.00-0.02) K/uL ESR (0-20) mm/hr APTT 28.0 (21.0-31.0) Seconds PTT Ratio 1.1 D-Dimer (0-500) ug/L FEU Sodium 136 (136-145) mmol/L Potassium 3.6 (3.5-5.1) mmol/L Chloride 102 (98-107) mmol/L Carbon Dioxide 26 (21-32) mmol/L Anion Gap 8.0 (3-11) BUN 15 (7-18) mg/dl Creatinine 1.24 (0.6-1.4) mg/dl Est Cr Clr Drug Dosing 75.6 ml/min Est GFR ( Amer) 71.8 ml/min Est GFR (Non-Af Amer) 61.9 ml/min BUN/Creatinine Ratio 12.4 (10-20) Glucose 91 (70-99) mg/dl Calcium 8.2 L (8.5-10.1) mg/dl Ferritin 775.2 H (8-388) ng/ml Total Bilirubin 0.7 (0.2-1) mg/dl AST 45 H (15-37) U/L ALT 40 (12-78) U/L Alkaline Phosphatase 50 (45-117) U/L Lactate Dehydrogenase (87-241) U/L Troponin I 0.057 H* (0-0.045) ng/ml C-Reactive Protein 7.77 H (0-0.29) mg/dl Total Protein 7.6 (6.4-8.2) gm/dl Albumin 3.5 (3.4-5.0) gm/dl Globulin 4.1 H (2.5-4.0) gm/dl Albumin/Globulin Ratio 0.9 (0.9-2) Lipase 284 (73-393) U/L Procalcitonin (0-0.5) ng/ml COVID-19 Eval Order SARS-CoV-2 (PCR) (Negative) 01/06/21 01/06/21 01/06/21 Range/Units 15:00 15:00 15:00 WBC (4.8-10.8) K/uL RBC (4.7-6.1) M/uL Hgb (14.0-18.0) g/dL Hct (42-52) % MCV (80-100) fL MCH (25-34) pg MCHC (32-36) g/dL RDW Std Deviation (36.4-46.3) fL RDW Coeff of Andrew (11.5-14.5) % Plt Count (130-400) K/uL MPV (7.4-10.4) fL Immature Gran % (Auto) % Neut % (Auto) % Lymph % (Auto) % [place] % (Auto) % Eos % (Auto) % Baso % (Auto) % Neut # (Auto) (1.4-6.5) K/uL Lymph # (Auto) (1.2-3.4) K/uL [place] # (Auto) (0.11-0.59) K/uL Eos # (Auto) (0-0.5) K/uL Baso # (Auto) (0-0.2) K/uL Immature Gran # (Auto) (0.00-0.02) K/uL ESR (0-20) mm/hr APTT (21.0-31.0) Seconds PTT Ratio D-Dimer 3300 H* (0-500) ug/L FEU Sodium (136-145) mmol/L Potassium (3.5-5.1) mmol/L Chloride (98-107) mmol/L Carbon Dioxide (21-32) mmol/L Anion Gap (3-11) BUN (7-18) mg/dl Creatinine (0.6-1.4) mg/dl Est Cr Clr Drug Dosing ml/min Est GFR ( Amer) ml/min Est GFR (Non-Af Amer) ml/min BUN/Creatinine Ratio (10-20) Glucose (70-99) mg/dl Calcium (8.5-10.1) mg/dl Ferritin (8-388) ng/ml Total Bilirubin (0.2-1) mg/dl AST (15-37) U/L ALT (12-78) U/L Alkaline Phosphatase (45-117) U/L Lactate Dehydrogenase (87-241) U/L Troponin I (0-0.045) ng/ml C-Reactive Protein (0-0.29) mg/dl Total Protein (6.4-8.2) gm/dl Albumin (3.4-5.0) gm/dl Globulin (2.5-4.0) gm/dl Albumin/Globulin Ratio (0.9-2) Lipase (73-393) U/L Procalcitonin (0-0.5) ng/ml COVID-19 Eval [address] Covid19 at [facility] SARS-CoV-2 (PCR) POSITIVE A* (Negative) 01/06/21 01/06/21 01/06/21 Range/Units 15:00 15:00 15:00 WBC (4.8-10.8) K/uL RBC (4.7-6.1) M/uL Hgb (14.0-18.0) g/dL Hct (42-52) % MCV (80-100) fL MCH (25-34) pg MCHC (32-36) g/dL RDW Std Deviation (36.4-46.3) fL RDW Coeff of Andrew (11.5-14.5) % Plt Count (130-400) K/uL MPV (7.4-10.4) fL Immature Gran % (Auto) % Neut % (Auto) % Lymph % (Auto) % [place] % (Auto) % Eos % (Auto) % Baso % (Auto) % Neut # (Auto) (1.4-6.5) K/uL Lymph # (Auto) (1.2-3.4) K/uL [place] # (Auto) (0.11-0.59) K/uL Eos # (Auto) (0-0.5) K/uL Baso # (Auto) (0-0.2) K/uL Immature Gran # (Auto) (0.00-0.02) K/uL ESR 69 H (0-20) mm/hr APTT (21.0-31.0) Seconds PTT Ratio D-Dimer (0-500) ug/L FEU Sodium (136-145) mmol/L Potassium (3.5-5.1) mmol/L Chloride (98-107) mmol/L Carbon Dioxide (21-32) mmol/L Anion Gap (3-11) BUN (7-18) mg/dl Creatinine (0.6-1.4) mg/dl Est Cr Clr Drug Dosing ml/min Est GFR ( Amer) ml/min Est GFR (Non-Af Amer) ml/min BUN/Creatinine Ratio (10-20) Glucose (70-99) mg/dl Calcium (8.5-10.1) mg/dl Ferritin Cancelled (8-388) ng/ml Total Bilirubin (0.2-1) mg/dl AST (15-37) U/L ALT (12-78) U/L Alkaline Phosphatase (45-117) U/L Lactate Dehydrogenase 259 H (87-241) U/L Troponin I (0-0.045) ng/ml C-Reactive Protein Cancelled (0-0.29) mg/dl Total Protein (6.4-8.2) gm/dl Albumin (3.4-5.0) gm/dl Globulin (2.5-4.0) gm/dl Albumin/Globulin Ratio (0.9-2) Lipase (73-393) U/L Procalcitonin (0-0.5) ng/ml COVID-19 Eval Order SARS-CoV-2 (PCR) (Negative) 01/06/21 Range/Units 15:00 WBC (4.8-10.8) K/uL RBC (4.7-6.1) M/uL Hgb (14.0-18.0) g/dL Hct (42-52) % MCV (80-100) fL MCH (25-34) pg MCHC (32-36) g/dL RDW Std Deviation (36.4-46.3) fL RDW Coeff of Andrew (11.5-14.5) % Plt Count (130-400) K/uL MPV (7.4-10.4) fL Immature Gran % (Auto) % Neut % (Auto) % Lymph % (Auto) % [place] % (Auto) % Eos % (Auto) % Baso % (Auto) % Neut # (Auto) (1.4-6.5) K/uL Lymph # (Auto) (1.2-3.4) K/uL [place] # (Auto) (0.11-0.59) K/uL Eos # (Auto) (0-0.5) K/uL Baso # (Auto) (0-0.2) K/uL Immature Gran # (Auto) (0.00-0.02) K/uL ESR (0-20) mm/hr APTT (21.0-31.0) Seconds PTT Ratio D-Dimer (0-500) ug/L FEU Sodium (136-145) mmol/L Potassium (3.5-5.1) mmol/L Chloride (98-107) mmol/L Carbon Dioxide (21-32) mmol/L Anion Gap (3-11) BUN (7-18) mg/dl Creatinine (0.6-1.4) mg/dl Est Cr Clr Drug Dosing ml/min Est GFR ( Amer) ml/min Est GFR (Non-Af Amer) ml/min BUN/Creatinine Ratio (10-20) Glucose (70-99) mg/dl Calcium (8.5-10.1) mg/dl Ferritin (8-388) ng/ml Total Bilirubin (0.2-1) mg/dl AST (15-37) U/L ALT (12-78) U/L Alkaline Phosphatase (45-117) U/L Lactate Dehydrogenase (87-241) U/L Troponin I (0-0.045) ng/ml C-Reactive Protein (0-0.29) mg/dl Total Protein (6.4-8.2) gm/dl Albumin (3.4-5.0) gm/dl Globulin (2.5-4.0) gm/dl Albumin/Globulin Ratio (0.9-2) Lipase (73-393) U/L Procalcitonin 0.23 (0-0.5) ng/ml COVID-19 Eval Order SARS-CoV-2 (PCR) (Negative) Administered Medications Discontinued Medications Sodium Chloride (Nss 1000ml) 1,000 mls @ 999 mls/hr IV .Q1H1M ONE Stop: 01/06/21 15:42 Last Infusion: 01/06/21 15:51 Dose: 0 mls/hr Documented by: [id number] Admin: 01/06/21 14:50 Dose: 999 mls/hr Documented by: [id number] Sodium Chloride (Nss 1000ml) 500 mls @ 999 mls/hr IV .Q31M ONE Stop: 01/06/21 15:12 Last Infusion: 01/06/21 15:21 Dose: 0 mls/hr Documented by: [id number] Admin: 01/06/21 14:50 Dose: 999 mls/hr Documented by: [id number] Ioversol (Optiray 320 125ml) 119 ml IV ONCE ONE Stop: 01/06/21 16:37 Last Admin: 01/06/21 16:36 Dose: 1 ml Documented by: [id number] Ketorolac Tromethamine (Ketorolac Tromethamine 15 Mg/Ml Vial) 15 mg IV NOW ONE Stop: 01/06/21 14:43 Last Admin: 01/06/21 14:50 Dose: 15 mg Documented by: [id number] Imaging Data Radiologist's Impression: Chest X-Ray 01/06/21 14:42 XR chest 1V portable HISTORY: 60 years-old Male Chest Pain acute atypical chest pain COMPARISON: CT abdomen and pelvis 11/26/2016 TECHNIQUE: Portable AP view of the chest FINDINGS: Cardiomediastinal and hilar silhouettes are within normal limits. No pneumothorax, pleural effusion, airspace consolidation or overt pulmonary edema. Bones of the chest appear grossly intact. IMPRESSION: No acute process. ACT 112: Negative or not required by law. The above report was generated using voice recognition software. It may contain grammatical, syntax or spelling errors. Electronically signed by: Chaim Linton M.D. 01/06/2021 4:20 PM Chest CTA 01/06/21 16:32 CT angio chest PE protocol CT DOSE: 556.29 mGycm HISTORY: 60 years-old Male with +trop dd recent travel and covid +. Acute shortness of breath. COVID Positive. TECHNIQUE: Multiple CTA images of the chest were obtained after the intravenous administration of 119 ml Optiray. Coronal and sagittal MIPS were obtained from the axial data set and were submitted for review. All measurements were obtained according to NASCET criteria. A dose lowering technique was utilized adhering to the principles of ALARA. COMPARISON: Chest radiograph of same day FINDINGS: CTA: The heart is normal in size. No pericardial effusion. Mild atherosclerosis of the thoracic aorta without aneurysm or dissection. Unremarkable pulmonary artery. No filling defects identified to suggest thromboembolic disease. Suboptimal opacification of the distal segmental and subsegmental branches. CT CHEST: Unremarkable thyroid. Calcified mediastinal and hilar lymph nodes suggestive of prior granulomatous disease. Scattered calcified pulmonary granulomata. No pneumothorax or pleural effusion. Mild patchy bilateral subpleural predominant groundglass opacities are noted within all lobes bilaterally. Mild associated bronchial wall thickening. Central airways are patent. Cholelithiasis. Calcific granuloma of the spleen. Hepatic steatosis. Unremarkable soft tissues. No acute fracture. Degenerative changes of the shoulders and spine. IMPRESSION: 1. No pulmonary emboli. 2. Mild bilateral subpleural predominant multilobar groundglass densities are suggestive of viral pneumonia. 3. Prior granulomatous disease. 4. Bronchial wall thickening suggestive of associated bronchitis. 5. Cholelithiasis. 6. Hepatic steatosis. ACT 112: Negative or not required by law. The above report was generated using voice recognition software. It may contain grammatical, syntax or spelling errors. Electronically signed by: Chaim Linton M.D. 01/06/2021 5:37 PM Discharge Plan Visit Data Chief Complaint: Flu Like Symptoms Stated Complaint: FEVER, HEADACHE, NAUSEA, DIARRHEA ED Provider: Aleks Mancera Discharge Problem: Pneumonia due to 2019-nCoV, Hypoxia, Elevated troponin, Abnormal ECG Patient Disposition: Admitted As Inpatient Discharge Instructions Interventions: ED Discharge Assessment Last Done: 01/06/21 18:21
[2021-01-06 15:27] LABS: Basophils # (auto) 0.01 K/uL (0-0.2); Basophils % (auto) 0.3 %; Hematocrit (blood only) 43.6 % (42-52); Hemoglobin 14.7 g/dL (14.0-18.0); Lymphocytes # (auto) 0.89 K/uL (1.2-3.4); Lymphocytes % (auto) 24.4 %; Mean Corpuscular Hemoglobin 32.3 pg (25-34); Mean Corpuscular Hgb Conc 33.7 g/dL (32-36); Mean Corpuscular Volume 95.8 fL (80-100); Mean Platelet Volume 9.9 fL (7.4-10.4); Monocytes # (auto) 0.26 K/uL (0.11-0.59); Monocytes % (auto) 7.1 %; Neutrophils # (auto) 2.49 K/uL (1.4-6.5); Neutrophils % (auto) 68.2 %; Platelet Count 138 K/uL (130-400); RDW Coefficient of Variation 12.7 % (11.5-14.5); RDW Standard Deviation 44.1 fL (36.4-46.3); Red Blood Count 4.55 M/uL (4.7-6.1); White Blood Count 3.65 K/uL (4.8-10.8)
[2021-01-06 15:37] LABS: Partial Thromboplastin Ratio 1.1
[2021-01-06 15:49] LABS: Albumin Level 3.5 gm/dl (3.4-5.0); BUN Creatinine Ratio 12.4 (10-20); Calcium 8.2 mg/dl (8.5-10.1); Creatinine Clr Calc Pharmacy 75.6 ml/min; Est GFR (African American) 71.8 ml/min; Est GFR (Non-African American) 61.9 ml/min; Potassium 3.6 mmol/L (3.5-5.1)
[2021-01-06 16:11] LABS: Albumin Globulin Ratio 0.9 (0.9-2); Bilirubin,Total 0.7 mg/dl (0.2-1); Globulin 4.1 gm/dl (2.5-4.0); Total Protein 7.6 gm/dl (6.4-8.2); Troponin I 0.057 ng/ml (0-0.045)
--- NOTE | 2021-01-06 16:21 | XRay Report ---
XR chest 1V portable HISTORY: 60 years-old Male Chest Pain acute atypical chest pain COMPARISON: CT abdomen and pelvis 11/26/2016 TECHNIQUE: Portable AP view of the chest FINDINGS: Cardiomediastinal and hilar silhouettes are within normal limits. No pneumothorax, pleural effusion, airspace consolidation or overt pulmonary edema. Bones of the chest appear grossly intact. IMPRESSION: No acute process. ACT 112: Negative or not required by law. The above report was generated using voice recognition software. It may contain grammatical, syntax o r spelling errors. Electronically signed by: Chaim Linton M.D. 01/06/2021 4:20 PM
[2021-01-06 16:31] LABS: D Dimer 3300 ug/L FEU (0-500)
[2021-01-06] MEDS ORDERED: OPTIRAY 320 125ml IV ONE (16:36)
--- NOTE | 2021-01-06 17:39 | CT Scan Report ---
CT angio chest PE protocol CT DOSE: 556.29 mGycm HISTORY: 60 years-old Male with +trop dd recent travel and covid +. Acute shortness of breath. COVI D Positive. TECHNIQUE: Multiple CTA images of the chest were obtained after the intravenous administration of 119 ml Optiray. Coronal and sagittal MIPS were obtained from the axial data set and were submitted for review. All measurements were obtained according to NASCET criteria. A dose lowering technique was u tilized adhering to the principles of ALARA. COMPARISON: Chest radiograph of same day FINDINGS: CTA: The heart is normal in size. No pericardial effusion. Mild atherosclerosis of the thoracic aorta with out aneurysm or dissection. Unremarkable pulmonary artery. No filling defects identified to suggest t hromboembolic disease. Suboptimal opacification of the distal segmental and subsegmental branches. CT CHEST: Unremarkable thyroid. Calcified mediastinal and hilar lymph nodes suggestive of prior granulomatous d isease. Scattered calcified pulmonary granulomata. No pneumothorax or pleural effusion. Mild patchy b ilateral subpleural predominant groundglass opacities are noted within all lobes bilaterally. Mild as sociated bronchial wall thickening. Central airways are patent. Cholelithiasis. Calcific granuloma of the spleen. Hepatic steatosis. Unremarkable soft tissues. No ac awilda fracture. Degenerative changes of the shoulders and spine. IMPRESSION: 1. No pulmonary emboli. 2. Mild bilateral subpleural predominant multilobar groundglass densities are suggestive of viral pne umonia. 3. Prior granulomatous disease. 4. Bronchial wall thickening suggestive of associated bronchitis. 5. Cholelithiasis. 6. Hepatic steatosis. ACT 112: Negative or not required by law. The above report was generated using voice recognition software. It may contain grammatical, syntax o r spelling errors. Electronically signed by: Chaim Linton M.D. 01/06/2021 5:37 PM
--- NOTE | 2021-01-06 17:58 | History & Physical Report ---
Date of Service January 06, 2021 Assessment & Plan (1) COVID-19: Plan: ~ day 7 of symptoms - CTA of the chest with mild pulmonary opacities - On Room air with SPO2 94-96% - CRP, ESR, PCT, Ferritin, LDH, Fibrinogen pending - Lovenox 0.5mg/kg BID for VTE prophylaxis - self proning/rotation therapy reviewed with patient - Oxygen delivery ordered if it would become warranted - Patient declined Remdisivir therapy (2) Elevated troponin I level: Plan: Mild elevation without cardiac symptoms or complaints - Likely type II secondary to stress of COVID infection - trend ECG and troponin I (3) Hypertension: Plan: Not on any mediations at home appears to have been following up with elevated BP at home - follow levels in house no acute intervention required (4) DVT prophylaxis: Plan: SCDs, Lovenox 50mg subq q12 History of Present Illness Primary Care Provider: BERTO Izaguirre 60 YOM with past medical history of: HTN, sinus congestion. Patient comes tot he EMD today following 7 days of nasal congestion, cough, body aches as well as losing his sense of taste and smell. Patient is not vaccinated, he traveled to [place] to visit family that towards the end of his visit prior to leaving, she was having runny nose and cough. Patient started to feel his symptoms of this about 2-3 days upon returning to home. He came in today to get COVID test as his symptoms were not going away. His COVID test was positive however he is not hypoxic. He was noted to have a mildly elevated Troponin I level at 0.057 and D dimer of 3300. He subsequently underwent a CTA of the chest and was negative for PE. Patient will be admitted to follow his Troponin I and ECG, as well as his oxygenation. He is not COVID vaccinated and his COVID test on admission is POSITIVE Allergies Allergy/AdvReac Type Severity Reaction Status Date / Time codeine AdvReac Intermediate HALLUCINATIONS, Verified 01/06/21 16:28 MENTAL CHANGES Home Medications Medication Instructions Recorded Confirmed Type multivitamin 1 tab PO PM 12/01/18 01/06/21 History acetaminophen 500 mg tablet 1,000 mg PO Q6H PRN 11/11/20 01/06/21 History (Tylenol Extra Strength) Past Med/Surg History Medical History Hypertension Surgical History H/O hernia repair History of appendectomy Family History Sister Colorectal cancer Denies family history of Ovarian cancer Prostate cancer Diabetes Myocardial infarction Breast cancer Hypertension Social History Smoking Status: Never smoker Second Hand Exposure: No; Hx Alcohol Use: No Hx Substance Use: No Preferred Language: Jamaican 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 Beliefs That Will Affect Care: None marital status: Current Living Situation: Spouse current occupational status: employed current occupation: [employer] Other Information That Helps Us Care for You: No Feels Safe at Home: Yes Safety Concerns: Feels Safe At This Time caffeine: Yes (coffee) Dental Care, Regularly: No Physical Activity Frequency: 5-6 Times per Week Physical Activity Frequency Comment: walking Seatbelt Use: never Sunscreen Use: No Assistive Devices: Hearing Aid - Right Assistive Devices Comment: Pt does not have hearing aid with him on admission Review of Systems Review of Systems: REVIEW OF SYSTEMS: Constitutional: (+) fever, sweats or chills Eyes: No diplopia, no worsening or blurred vision ENT: normal hearing, no trouble swallowing Respiratory: (+) cough, sputum, dyspnea with activity, NO dyspnea at rest Cardiovascular: No chest pain, tightness or palpitations Abdomen: (+) loss of appetite, nausea, vomiting, NO diarrhea or constipation Musculoskeletal: (+) joint pain, calf pain, swelling Neurologic: No weakness, numbness/tingling, or balance problems Psychiatric: No anxiety or depression Skin: No rash or itch Physical Exam Physical Exam: PHYSICAL EXAM: General: awake, alert, no apparent distress Head: Normocephalic, atraumatic ENT: PERRL, EOMI, no pharyngeal exudate, mucous membranes moist Neuro: AAO x 3, speech clear and appropriate, strength intact bilaterally 5/5, sensation intact and equal all extremities and dermatomes, no pronator drift Chest: equal rise and fall of the chest, no accessory muscle use, no heaves or thrills, scattered rhonchi throughout, nasal congestion, on room air, Cardiac: Regular rate and rhythm, telemetry reviewed, skin warm dry, cap refill <3 seconds, peripheral pulses +2 no JVD, no murmur, no edema GI: NABS x 4 quadrants, soft, nontender to palpation, no rebound, guarding or tenderness : Spontaneously voiding, no pain, no CVA tenderness, Extremities: Normal inspection, no peripheral edema or erythema, calfs nontender to palpation Psych: Normal mood and affect Skin: no rash or erythema Results & Data Results & Data ([facility]) Vital Signs (Past 12 Hours) Vital Signs Temp Pulse Resp BP Pulse Ox 01/06/21 15:42 63 19 109/69 98 01/06/21 15:00 55 L 17 96/64 L 98 01/06/21 13:59 37.7 C H 62 18 113/69 95 Laboratory Results Abnormal Labs 01/06/21 01/06/21 01/06/21 15:00 15:00 15:00 WBC 3.65 L RBC 4.55 L Lymph # (Auto) 0.89 L ESR D-Dimer Calcium 8.2 L Ferritin 775.2 H AST 45 H Lactate Dehydrogenase Troponin I 0.057 H* C-Reactive Protein 7.77 H Globulin 4.1 H SARS-CoV-2 (PCR) POSITIVE A* 01/06/21 01/06/21 01/06/21 15:00 15:00 15:00 WBC RBC Lymph # (Auto) ESR 69 H D-Dimer 3300 H* Calcium Ferritin AST Lactate Dehydrogenase 259 H Troponin I C-Reactive Protein Globulin SARS-CoV-2 (PCR) Diagnostic Findings Chest X-Ray 01/06/21 14:42 XR chest 1V portable HISTORY: 60 years-old Male Chest Pain acute atypical chest pain COMPARISON: CT abdomen and pelvis 11/26/2016 TECHNIQUE: Portable AP view of the chest FINDINGS: Cardiomediastinal and hilar silhouettes are within normal limits. No pneumothorax, pleural effusion, airspace consolidation or overt pulmonary edema. Bones of the chest appear grossly intact. IMPRESSION: No acute process. ACT 112: Negative or not required by law. The above report was generated using voice recognition software. It may contain grammatical, syntax or spelling errors. Electronically signed by: Chaim Linton M.D. 01/06/2021 4:20 PM Chest CTA 01/06/21 16:32 CT angio chest PE protocol CT DOSE: 556.29 mGycm HISTORY: 60 years-old Male with +trop dd recent travel and covid +. Acute shortness of breath. COVID Positive. TECHNIQUE: Multiple CTA images of the chest were obtained after the intravenous administration of 119 ml Optiray. Coronal and sagittal MIPS were obtained from the axial data set and were submitted for review. All measurements were obtained according to NASCET criteria. A dose lowering technique was utilized adhering to the principles of ALARA. COMPARISON: Chest radiograph of same day FINDINGS: CTA: The heart is normal in size. No pericardial effusion. Mild atherosclerosis of the thoracic aorta without aneurysm or dissection. Unremarkable pulmonary artery. No filling defects identified to suggest thromboembolic disease. Suboptimal opacification of the distal segmental and subsegmental branches. CT CHEST: Unremarkable thyroid. Calcified mediastinal and hilar lymph nodes suggestive of prior granulomatous disease. Scattered calcified pulmonary granulomata. No pneumothorax or pleural effusion. Mild patchy bilateral subpleural predominant groundglass opacities are noted within all lobes bilaterally. Mild associated bronchial wall thickening. Central airways are patent. Cholelithiasis. Calcific granuloma of the spleen. Hepatic steatosis. Unremarkable soft tissues. No acute fracture. Degenerative changes of the shoulders and spine. IMPRESSION: 1. No pulmonary emboli. 2. Mild bilateral subpleural predominant multilobar groundglass densities are suggestive of viral pneumonia. 3. Prior granulomatous disease. 4. Bronchial wall thickening suggestive of associated bronchitis. 5. Cholelithiasis. 6. Hepatic steatosis. ACT 112: Negative or not required by law. The above report was generated using voice recognition software. It may contain grammatical, syntax or spelling errors. Electronically signed by: Chaim Linton M.D. 01/06/2021 5:37 PM Medications Administered Discontinued Medications Sodium Chloride (Nss 1000ml) 1,000 mls @ 999 mls/hr IV .Q1H1M ONE Stop: 01/06/21 15:42 Last Infusion: 01/06/21 15:51 Dose: 0 mls/hr Documented by: [id number] Admin: 01/06/21 14:50 Dose: 999 mls/hr Documented by: [id number] Sodium Chloride (Nss 1000ml) 500 mls @ 999 mls/hr IV .Q31M ONE Stop: 01/06/21 15:12 Last Infusion: 01/06/21 15:21 Dose: 0 mls/hr Documented by: [id number] Admin: 01/06/21 14:50 Dose: 999 mls/hr Documented by: [id number] Ioversol (Optiray 320 125ml) 119 ml IV ONCE ONE Stop: 01/06/21 16:37 Last Admin: 01/06/21 16:36 Dose: 1 ml Documented by: [id number] Ketorolac Tromethamine (Ketorolac Tromethamine 15 Mg/Ml Vial) 15 mg IV NOW ONE Stop: 01/06/21 14:43 Last Admin: 01/06/21 14:50 Dose: 15 mg Documented by: [id number] ECG Additional Comments: Sinus bradycardia Nonspecific T wave abnormality Abnormal ECG When compared with ECG of 05-JUL-2011 15:18, Nonspecific T wave abnormality, worse in Lateral leads Code Status & VTE Plan Code Status CODE: FULL VTE: SCDS, Lovenox 50mg BID sub q VTE Prophylaxis Plan VTE Prophylaxis will be ordered: Yes Supervising Physician Co-Signing Physician Notes Attending addendum: I have physically seen this patient, have supervised the FELIX's activities, and agree with the H&P unless as otherwise noted. Assessment and Plan: COVID-19 pneumonia with hypoxia- Dexamethasone 6 mg IV daily Lovenox 0.5 mg kilogram twice daily Guaifenesin extended release 1200 mg p.o. twice daily Nasal cannula oxygen, titrate to keep pulse ox around 95% Patient declined remdesivir therapy Elevated troponin I level/hypertension The patient will be admitted to telemetry for serial cardiac enzymes, serial E KG's, cardiac rhythm monitoring and a 2-D echocardiogram with Dopplers. Likely type II ME, supply demand mismatch Remaining orders and notations as noted PG Care Time/CCT Total # of Minutes Spent Total Time Spent with Patient: Total time spent is greater than 50% in coordination of care (as documented) at patient's floor/unit and/or counseling patient: Coding Level of Care Code INT OBSERVATION CARE 70M LVL 3 Diagnoses COVID-19 U07.1 Elevated troponin I level R77.8 Hypertension I10 DVT prophylaxis Z29.9
[2021-01-06 18:04] LABS: C Reactive Protein 7.77 mg/dl (0-0.29); Ferritin 775.2 ng/ml (8-388)
[2021-01-06 18:42] LABS: Fibrinogen 507 mg/dl (184-400)
[2021-01-06] MEDS ORDERED: ACETAMINOPHEN 500 MG TAB PO PRN (19:22)
[2021-01-06] MEDS ORDERED: ONDANSETRON INJ 2 MG/ML 2 ML VIAL IV PRN (19:22)
[2021-01-06] MEDS ORDERED: ALBUTEROL HFA 8 GM INHALER INH PRN (19:22)
[2021-01-06] MEDS ORDERED: POLYETHYLENE (MIRALAX) 17 GM PACK PO PRN (19:22)
[2021-01-06] MEDS: ENOXAPARIN INJ 60 MG/0.6 ML SYR SQ SCH (21:33)
[2021-01-06 21:55] LABS: Appearance Urine Clear (Clear); Bacteria Urine Automated Negative (Negative); Blood Urine Negative (Negative); Color Urine Dark Yellow; Epithelial Cell Urine Auto 20-30 /lpf (0-5); Glucose Urine UA Negative (Negative); Ketones Urine 1+ (Negative); Leukocyte Esterase Urine Negative (Negative); Nitrite Urine Negative (Negative); Protein Urine 1+ (Negative); RBC Urine Automated 0-4 /hpf (0-4); Specific Gravity Urine > 1.045 (1.000-1.030); Urobilinogen Urine Negative (Negative)
[2021-01-06 22:01] LABS: Bilirubin Urine 1+ (Negative)
[2021-01-07 04:00] LABS: Basophils # (auto) 0.01 K/uL (0-0.2); Basophils % (auto) 0.3 %; Hematocrit (blood only) 37.2 % (42-52); Hemoglobin 12.7 g/dL (14.0-18.0); Lymphocytes # (auto) 1.26 K/uL (1.2-3.4); Mean Corpuscular Hemoglobin 31.7 pg (25-34); Mean Corpuscular Hgb Conc 34.1 g/dL (32-36); Mean Corpuscular Volume 92.8 fL (80-100); Mean Platelet Volume 9.6 fL (7.4-10.4); Monocytes # (auto) 0.18 K/uL (0.11-0.59); Monocytes % (auto) 5.1 %; Neutrophils # (auto) 2.05 K/uL (1.4-6.5); Neutrophils % (auto) 58.6 %; Platelet Count 121 K/uL (130-400); RDW Coefficient of Variation 12.6 % (11.5-14.5); RDW Standard Deviation 42.9 fL (36.4-46.3); Red Blood Count 4.01 M/uL (4.7-6.1)
[2021-01-07 04:14] LABS: Calcium 7.6 mg/dl (8.5-10.1); Creatinine Clr Calc Pharmacy 87.3 ml/min; Est GFR (African American) 84.8 ml/min; Est GFR (Non-African American) 73.2 ml/min; Magnesium 2.1 mg/dl (1.8-2.4); Potassium 3.3 mmol/L (3.5-5.1)
[2021-01-07 04:20] LABS: Troponin I 0.083 ng/ml (0-0.045)
[2021-01-07] MEDS: ENOXAPARIN INJ 60 MG/0.6 ML SYR SQ SCH ×2 (08:09→21:12)
[2021-01-07] MEDS ORDERED: POTASSIUM CHLORIDE CRTAB 20 MEQ TABCR PO STA (08:16)
--- NOTE | 2021-01-07 09:29 | Electrocardiogram Report ---
Test Reason : Blood Pressure : / mmHG Vent. Rate : 058 BPM Atrial Rate : 058 BPM P-R Int : 148 ms QRS Dur : 090 ms QT Int : 384 ms P-R-T Axes : 054 -19 043 degrees QTc Int : 376 ms Sinus bradycardia Nonspecific T wave abnormality Abnormal ECG When compared with ECG of 05-JUL-2011 15:18, Nonspecific T wave abnormality, worse in Lateral leads Confirmed by Arvind Lira ([id number]) on 01/07/2021 9:29:04 AM Referred By: REFERRED SELF Confirmed By:Arvind Lira
--- NOTE | 2021-01-07 09:56 | Electrocardiogram Report ---
Test Reason : Blood Pressure : / mmHG Vent. Rate : 078 BPM Atrial Rate : 078 BPM P-R Int : 146 ms QRS Dur : 088 ms QT Int : 352 ms P-R-T Axes : 053 -40 049 degrees QTc Int : 401 ms Normal sinus rhythm Left axis deviation Nonspecific T wave abnormality Abnormal ECG When compared with ECG of 06-JAN-2021 14:52, (unconfirmed) No significant change was found Confirmed by Arvind Lira ([id number]) on 01/07/2021 9:56:18 AM Referred By: REFERRED SELF Confirmed By:Arvind Lira
--- NOTE | 2021-01-07 10:01 | Electrocardiogram Report ---
Test Reason : Blood Pressure : / mmHG Vent. Rate : 055 BPM Atrial Rate : 055 BPM P-R Int : 144 ms QRS Dur : 090 ms QT Int : 478 ms P-R-T Axes : 063 -35 011 degrees QTc Int : 457 ms Sinus bradycardia Left axis deviation Nonspecific T wave abnormality Abnormal ECG When compared with ECG of 06-JAN-2021 21:14, (unconfirmed) QT has lengthened Confirmed by Arvind Lira ([id number]) on 01/07/2021 10:00:53 AM Referred By: REFERRED SELF Confirmed By:Arvind Lira
[2021-01-07] MEDS: ACETAMINOPHEN 500 MG TAB PO PRN ×2 (11:58→23:22)
--- NOTE | 2021-01-07 12:16 | Billing Data ---
Date of Service January 07, 2021 Coding Level of Care Code 92344 Initial Inpt Care Lvl 3
--- NOTE | 2021-01-07 21:56 | Hospitalist Progress Note ---
Date of Service January 07, 2021 Assessment & Plan (1) Pneumonia due to 2019-nCoV: Plan: mild clinically and radiographically. o2 sats wnl. does not meet criteria for use of remdesivir or steroid therapy. procal wnl - bacterial superinfection unlikely. discussed proning, use of incentive, etc. counseled him about 7-14 day window where pulmonary issues can worsen. (2) Elevated troponin: Plan: likely myocardial demand ischemia rather than ACS no ischemic symptoms pre-admission or since admission EKG with nonspecific ST changes only would defer on stress test or other imaging at this time no evidence of CHF clinically or radiographically (3) Hypertension: Plan: not on meds for such, and BPs today wnl (4) Pancytopenia: Plan: mild - 2nd to COVID-19 / bone marrow suppression blood draws can also explain mild anemia cbc in am (5) D-dimer, elevated: Plan: no evidence of PE on CTA chest yesterday cont lovenox DVT proph (6) Hypokalemia: Plan: replace repeat BMP am (7) DVT prophylaxis: Plan: lovenox Plan: patient felt quite poorly this am, and just started to feel better later in the day also needed to sort out who would pick him up at d/c thus, d/c tomorrow am if stable and labs acceptable a daughter who has had COVID in the last couple of months will get him tomorrow Admission and Anticipated Discharge Date Admission Date: January 06, 2021 Subjective patient had high fever this afternoon prior to admission he had no chest pains and has had no chest pains since admission prior to COVID he had been in his usual state of health and denies any prior ischemic symptoms we discussed the mildly elevated troponin and what it means had very poor appetite for several days at home - improved today minimal cough denies dyspnea at rest or with exertion o2 sats with walking were 93% or higher w/ ambulation in the hallway we discussed who would come to pick him up - his daughter Victorina had COVID 2 months ago and likely could get him tomorrow Review of Systems Review of Systems: gen - fatigue, anorexia, fevers, chills CV - no chest pain pulm - no dyspnea GI - ongoing diarrhea but no emesis; occasional nausea Physical Exam Physical Exam: gen - obese, NAD mouth - MMM heart - RRR, s1 s2, no murmur lungs - minimal-mild bibasilar rales, good airation abd - protuberant, BS+, ?tiny umbilical hernia with surgical scar present, no HSM ext - no edema psych - a/o x 3 Results & Data Results & Data ([facility]) Vital Signs (Past 12 Hours) Vital Signs Temp Pulse Pulse Resp BP Pulse Ox 01/07/21 19:55 38.3 C H 64 16 121/64 95 01/07/21 15:29 37.0 C 50 L 18 102/61 96 01/07/21 13:48 37.5 C 01/07/21 12:59 37.8 C H 01/07/21 11:58 38.1 C H 01/07/21 11:16 38.8 C H 61 16 120/64 95 Laboratory Results Laboratory Results - last 24 hr 01/06/21 01/06/21 01/07/21 21:25 22:15 03:25 WBC RBC Hgb Hct MCV MCH MCHC RDW Std Deviation RDW Coeff of Andrew Plt Count MPV Immature Gran % (Auto) Neut % (Auto) Lymph % (Auto) [place] % (Auto) Eos % (Auto) Baso % (Auto) Neut # (Auto) Lymph # (Auto) [place] # (Auto) Eos # (Auto) Baso # (Auto) Immature Gran # (Auto) Sodium Potassium Chloride Carbon Dioxide Anion Gap BUN Creatinine Est Cr Clr Drug Dosing Est GFR ( Amer) Est GFR (Non-Af Amer) BUN/Creatinine Ratio Glucose Calcium Magnesium Troponin I 0.075 H* Cancelled Urine Color Dark Yellow Urine Appearance Clear Urine pH 5.0 Ur Specific [place] > 1.045 H Urine Protein 1+ H Urine Glucose (UA) Negative Urine Ketones 1+ H Urine Blood Negative Urine Nitrite Negative Urine Bilirubin 1+ H Urine Urobilinogen Negative Ur Leukocyte Esterase Negative Urine WBC (Auto) 1-5 Urine RBC (Auto) 0-4 U Hyaline Cast (Auto) 5-10 H U Epithel Cells (Auto) 20-30 H Urine Bacteria (Auto) Negative 01/07/21 01/07/21 01/07/21 03:25 03:25 06:10 WBC 3.50 L RBC 4.01 L Hgb 12.7 L Hct 37.2 L MCV 92.8 MCH 31.7 MCHC 34.1 RDW Std Deviation 42.9 RDW Coeff of Andrew 12.6 Plt Count 121 L MPV 9.6 Immature Gran % (Auto) 0.0 Neut % (Auto) 58.6 Lymph % (Auto) 36.0 [place] % (Auto) 5.1 Eos % (Auto) 0.0 Baso % (Auto) 0.3 Neut # (Auto) 2.05 Lymph # (Auto) 1.26 [place] # (Auto) 0.18 Eos # (Auto) 0.00 Baso # (Auto) 0.01 Immature Gran # (Auto) 0.00 Sodium 137 Potassium 3.3 L Chloride 105 Carbon Dioxide 24 Anion Gap 8.0 BUN 17 Creatinine 1.08 Est Cr Clr Drug Dosing 87.3 Est GFR ( Amer) 84.8 Est GFR (Non-Af Amer) 73.2 BUN/Creatinine Ratio 16.0 Glucose 92 Calcium 7.6 L Magnesium 2.1 Troponin I 0.083 H* 0.081 H* Urine Color Urine Appearance Urine pH Ur Specific [place] Urine Protein Urine Glucose (UA) Urine Ketones Urine Blood Urine Nitrite Urine Bilirubin Urine Urobilinogen Ur Leukocyte Esterase Urine WBC (Auto) Urine RBC (Auto) U Hyaline Cast (Auto) U Epithel Cells (Auto) Urine Bacteria (Auto) PG Care Time/CCT Total # of Minutes Spent Total Time Spent with Patient: Total time spent is greater than 50% in coordination of care (as documented) at patient's floor/unit and/or counseling patient: Coding Level of Care Code 60982 Subseq Hosp Care Lvl 2 Diagnoses Pneumonia due to 2019-nCoV U07.1; J12.82 Elevated troponin R77.8 Hypertension I10 Pancytopenia D61.818 D-dimer, elevated R79.89 Hypokalemia E87.6 DVT prophylaxis Z29.9
[2021-01-08 06:50] LABS: Basophils # (auto) 0.01 K/uL (0-0.2); Basophils % (auto) 0.3 %; Eosinophils # (auto) 0.01 K/uL (0-0.5); Eosinophils % (auto) 0.3 %; Hematocrit (blood only) 38.2 % (42-52); Hemoglobin 12.8 g/dL (14.0-18.0); Immature Granulocytes # (auto) 0.01 K/uL (0.00-0.02); Immature Granulocytes % (auto) 0.3 %; Lymphocytes # (auto) 1.11 K/uL (1.2-3.4); Lymphocytes % (auto) 33.9 %; Mean Corpuscular Hemoglobin 31.4 pg (25-34); Mean Corpuscular Hgb Conc 33.5 g/dL (32-36); Mean Corpuscular Volume 93.6 fL (80-100); Mean Platelet Volume 9.8 fL (7.4-10.4); Monocytes # (auto) 0.21 K/uL (0.11-0.59); Monocytes % (auto) 6.4 %; Neutrophils # (auto) 1.92 K/uL (1.4-6.5); Neutrophils % (auto) 58.8 %; Platelet Count 125 K/uL (130-400); RDW Coefficient of Variation 12.8 % (11.5-14.5); RDW Standard Deviation 43.4 fL (36.4-46.3); Red Blood Count 4.08 M/uL (4.7-6.1); White Blood Count 3.27 K/uL (4.8-10.8)
[2021-01-08 07:22] LABS: BUN Creatinine Ratio 14.5 (10-20); Calcium 7.9 mg/dl (8.5-10.1); Est GFR (African American) 88.8 ml/min; Est GFR (Non-African American) 76.6 ml/min; Potassium 3.8 mmol/L (3.5-5.1)
[2021-01-08] MEDS: ENOXAPARIN INJ 60 MG/0.6 ML SYR SQ SCH (07:48)
[2021-01-08] MEDS ORDERED: dexAMETHasone 4 MG TAB PO ONE (11:30)
--- NOTE | 2021-01-08 11:32 | Discharge Summary ---
Date of Service January 08, 2021 Admission HPI Per Admitting Provider 60 YOM with past medical history of: HTN, sinus congestion. Patient comes tot he EMD today following 7 days of nasal congestion, cough, body aches as well as losing his sense of taste and smell. Patient is not vaccinated, he traveled to [place] to visit family that towards the end of his visit prior to leaving, she was having runny nose and cough. Patient started to feel his symptoms of this about 2-3 days upon returning to home. He came in today to get COVID test as his symptoms were not going away. His COVID test was positive however he is not hypoxic. He was noted to have a mildly elevated Troponin I level at 0.057 and D dimer of 3300. He subsequently underwent a CTA of the chest and was negative for PE. Patient will be admitted to follow his Troponin I and ECG, as well as his oxygenation. He is not COVID vaccinated and his COVID test on admission is POSITIVE Principal Diagnosis COVID 19 infection, pneumonia Discharge Exam Constitutional well developed, well nourished, + obese and comfortable; no acute distress and not ill appearing Neck trachea midline, no thyromegaly Respiratory normal respiratory effort, lungs clear to auscultation Cardiovascular RRR, no murmur, no edema Gastrointestinal (Abdomen) normal bowel sounds, soft, nontender, no hepatosplenomegaly Musculoskeletal no cyanosis or clubbing, extremities motor strength 5/5 Skin no rashes, warm and dry Neurologic normal touch/pain/proprioception, CN's II-XI intact bilaterally and moves all extremities; no focal motor deficits Psychiatric A+Ox3, euthymic affect Discharge Data Allergies Allergy/AdvReac Type Severity Reaction Status Date / Time codeine AdvReac Intermediate HALLUCINATIONS, Verified 01/06/21 16:28 MENTAL CHANGES Consultations 01/06/21 16:49 ED Decision to Admit Stat Ordered Studies 01/06/21 16:32 CT angio chest PE protocol Stat Hospital Course (1) Pneumonia due to 2019-nCoV: mild clinically and radiographically. o2 sats 90-92% this morning on room air, was 94% walking yesterday since he is below 94%, will give dexamethasone 6mg PO daily x 10 days discharge to home, he has good family support, people will be watching him take Zinc and Vitamin D for immune support, stay well nourished, well hydrated, well rested instructed to obtain finger pulse oximeter to monitor for saturations < 89% and to return to the hospital if he is hypoxic stay in isolation for one more week at home (2) Elevated troponin: likely myocardial demand ischemia rather than ACS no ischemic symptoms pre-admission or since admission EKG with nonspecific ST changes only would defer on stress test or other imaging at this time no evidence of CHF clinically or radiographically (3) Hypertension: not on meds for such, and BPs today wnl (4) Pancytopenia: mild - 2nd to COVID-19 / bone marrow suppression blood draws can also explain mild anemia (5) D-dimer, elevated: no evidence of PE on CTA chest cont lovenox DVT proph while admitted no need for prophylaxis on discharge (6) Hypokalemia: resolved (7) DVT prophylaxis: lovenox d/c to home, complete dexamethasone course, monitor for hypoxia at home Total Time Total Time Spent Total Time Spent (In Minutes): 32 Total Time Includes: Examination of the Patient, Discharge Planning and Medication Reconciliation Discharge Plan Discharge Items Patient Disposition: Home - Self-Care Reason For Visit: COVID, ELEVATED TROPONIN I Discharge Diagnosis: COVID 19 pneumonia Condition on Discharge: Good Goals: complete course of dexamethasone stay well nourished, well hydrated, plenty of rest Activity: Per Instructions section Activity Comment: stay isolated for 7 more days Exercise/Sports: Gradually increase as tolerated Weightbearing: Full weightbearing Non-emergency contact: Primary Care Provider Call non-emergency contact if: you have any medication questions, your symptoms worsen and you have a fever Follow-up/Referrals: Rosanna Dumont CRNP [Primary Care Provider] - (one week) Diet: Regular Addtl Attending Provider Instructions: Medications: - DEXAMETHASONE: 6mg daily for 9 more days to help treat pneumonia - ZINC and VITAMIN D3: over the counter, take Zinc 220mg and Vitamin D3 5000 units daily for 7-10 days for immune support as you recover COVID 19 infection, pneumonia currently you are around day 10 of illness, typically this is when symptoms can get worse but you feel like you are getting better your oxygen saturations were < 94% today at 90 and 92%, technically you qualify for treatment with dexamethasone (steroid) but you do not need oxygen please complete 9 more days of dexamethasone 6mg daily please obtain a finger pulse oximeter to monitor oxygen levels at home, if you are below 89% then please return to the emergency room for oxygen/admission stay well nourished, well hydrated, get rest for the next week Pending Studies at Discharge: No Stand-Alone Forms: My [facility], Smoking Cessation Medications and DC Order Prescriptions: New dexamethasone 4 mg tablet 6 mg PO DAILY 9 Days Qty: 14 RF: 0 Continued multivitamin tablet 1 tab PO PM RF: 0 acetaminophen [Tylenol Extra Strength] 500 mg Tablet 1,000 mg PO Q6H PRN (Reason: Pain) RF: 0 Discharge Orders: Discharge Order (Routine); Ordered 01/08/21 Ordered By: Joao Hernandez Admission Data Admit Date/Time: 01/06/21 17:53 Attending Provider: Joao Hernandez Admit Provider: Dharmesh Tobin Primary Care Provider: Rosanna Dumont Other Providers: Dharmesh Tobin Coding Level of Care Code D/C DAY MANAGEMENT >30 MINS Diagnoses Pneumonia due to 2019-nCoV U07.1; J12.82 Elevated troponin R77.8 Hypertension I10 Pancytopenia D61.818 D-dimer, elevated R79.89 Hypokalemia E87.6 DVT prophylaxis Z29.9
--- NOTE | 2021-01-08 12:33 | XRay Report ---
XR chest 1V portable HISTORY: Shortness of breath. COVID pneumonia COMPARISON: Chest 01/06/2021. FINDINGS: No pneumothorax. No pleural effusions. The heart remains mildly enlarged. There are faint p atchy peripheral airspace opacities within the right upper lung zone and left lower lung zone. These have slightly progressed and are consistent with the patient's history of a viral pneumonia. IMPRESSION: Slight progression of the peripheral airspace opacities consistent with the patient's known viral pne umonia. ACT 112: Negative or not required by law. Electronically signed by: Edin Croft M.D. 01/08/2021 12:32 PM
== END 2021-01-08 17:00 | disposition home or self-care (01) | DRG 177 ==
LOC: ED 13:45 → 2E 17:53 → SUATTDRO 17:53 → 2E 18:12